=== PATIENT | female | born 1980 | race Caucasian/White ===

== ENCOUNTER 2019-07-17 11:45 | Emergency (ER) | payer SELFPAY ==
--- NOTE | 2019-07-17 12:12 | EDM.PDOC ---
ED HPI GENERAL MEDICAL PROBLEM - General Chief Complaint: ENT Problem Stated Complaint: RIGHT EYE WATERY,NOSE LEAKING Time Seen by Provider: 07/17/19 11:50 Source of Information: Reports: Patient, Old Records, RN Notes Reviewed History Limitations: Reports: No Limitations - History of Present Illness INITIAL COMMENTS - FREE TEXT/NARRATIVE: Patient is a 38-year-old female who presents to the ED for evaluation of sinus issues. The patient notes that she was most recently evaluated in this ER in May for some of the same symptoms, she was found to have an outer ear infection, and sinusitis at that time. She was put on doxycycline 100 mg twice a day, some antibiotic eardrops, a course of prednisone for management. Patient states that she did feel as if she was getting a little bit better, and had relief her week after the medications but everything has gone downhill since then again. She did follow up with ENT in [place], however her mother became ill and she missed her appointment and had to reschedule, her ENT appointment is in August now. The patient complains that over the last 3 days her symptoms have been worsening, she feels ear fullness and popping, she notes that her nose is constantly running and her right eye is now irritated and watering. She thinks that she may have scratched her eye, regarding the eye watering. The patient does not note she's had any fevers at home, but states she does have hot flashes. The patient does take loratadine, Xyzal, Flonase, and another nasal spray, and has been also taking Tylenol Cold and flu for management of her symptoms and not getting much relief. The patient complains of right-sided facial pain and fullness as well. Right Eye Pain Score (Numeric/FACES): 5 - Related Data Allergies Allergy/AdvReac Type Severity Reaction Status Date / Time Penicillins Allergy Swelling Verified 07/17/19 11:53 shellfish derived Allergy Cannot Verified 07/17/19 11:53 Remember Home Meds: Home Meds Amoxicillin/Clavulanate K [Augmentin 875-125 MG] 1 tab PO BID #14 tablet [Rx] Fluticasone Propionate [Flonase Allergy Relief] 1 spray NASBOTH Q6HR 07/17/19 [ History] Levocetirizine Dihydrochloride [Xyzal] 5 mg PO BEDTIME 07/17/19 [History] Loratadine 10 mg PO DAILY 07/17/19 [History] Montelukast [Singulair] 10 mg PO DAILY #30 tab 07/17/19 [Rx] Olopatadine HCl [Patanase] 1 spray NASBOTH BID 07/17/19 [History] Phenylephrine/Dm/Acetaminop/Gg [Tylenol Cold-Flu Severe Caplet] 1 tab PO Q6HR [History] Past Medical History HEENT History: Reports: Allergic Rhinitis, Otitis Media, Sinusitis Respiratory History: Reports: Asthma [employer]AD History: Reports: - Infectious Disease History Infectious Disease History: Reports: Chicken Pox - Past Surgical History HEENT Surgical History: Reports: Oral Surgery Female Surgical History: Reports: D&C, Tubal Ligation Musculoskeletal Surgical History: Reports: Other (See Below) Other Musculoskeletal Surgeries/Procedures:: L ankle surgery Social & Family History - Family History Family Medical History: Noncontributory - Tobacco Use Smoking Status *Q: Former Smoker Used Tobacco, but Quit: Yes Month/Year Tobacco Last Used: 2010 - Caffeine Use Caffeine Use: Reports: Coffee - Recreational Drug Use Recreational Drug Use: No - Living Situation & Occupation Living situation: Reports: Occupation: Unemployed ED ROS ENT - Review of Systems Review Of Systems: See Below Constitutional: Reports: Fever (subjective) HEENT: Reports: Ear Pain (inner ear pain/fullness), Eye Pain (R eye irritation) , Rhinitis, Sinus Problem. Denies: Ear Discharge Respiratory: Denies: Shortness of Breath, Cough Cardiovascular: Denies: Chest Pain Endocrine: Reports: No Symptoms GI/Abdominal: Reports: No Symptoms : Reports: No Symptoms Musculoskeletal: Reports: No Symptoms Skin: Reports: No Symptoms Neurological: Reports: No Symptoms Psychiatric: Reports: No Symptoms Hematologic/Lymphatic: Reports: No Symptoms Immunologic: Reports: No Symptoms ED EXAM, ENT - Physical Exam Exam: See Below Exam Limited By: No Limitations General Appearance: Alert, WD/WN, No Apparent Distress Eye Exam: Right Eye: Conjunctival Injection, Periorbital Changes (bilateral eyelid inflammation), Left Eye: EOMI, Normal Inspection, PERRL Ears: Normal External Exam, Normal Canal, Hearing Grossly Normal, Normal TMs Nose: Normal Inspection, Injected Turbinates (bilaterally, there is white drainage noted to turbinates) Mouth/Throat: Normal Inspection, Normal Gums, Normal Lips, Normal Oropharynx, Normal Teeth Head: Atraumatic, Normocephalic, Facial Tenderness (over bilateral maxillary sinuses) Neck: Normal Inspection, Supple, Non-Tender, Full Range of Motion Respiratory/Chest: No Respiratory Distress, Lungs Clear, Normal Breath Sounds, No Accessory Muscle Use, Chest Non-Tender Cardiovascular: Normal Peripheral Pulses, Regular Rate, Rhythm, No Murmur Extremities: Normal Inspection, Normal Capillary Refill Neurological: Alert, Oriented, Normal Cognition, No Motor/Sensory Deficits Psychiatric: Normal Affect, Normal Mood Skin: Warm, Dry, Intact, Normal Color, No Rash Course - Vital Signs Last Recorded V/S: Last Vital Signs Temp 97.1 F 07/17/19 11:50 Pulse 84 07/17/19 11:50 Resp 18 07/17/19 11:50 BP 124/86 07/17/19 11:50 Pulse Ox 98 07/17/19 11:50 - Orders/Labs/Meds Meds: Medications Discontinued Medications Generic Name Dose Route Start Last Admin Trade Name Erick PRN Reason Stop Dose Admin Fluorescein Sodium 1 mg 07/17/19 12:34 07/17/19 12:41 Ful-Minoo EYERT 07/17/19 12:35 1 mg ONETIME ONE Administration - Re-Assessments/Exams Free Text/Narrative Re-Assessment/Exam: 07/17/19 12:42 Patient presents to the ED for the evaluation of sinus issues. I do believe she has an acute sinus infection at this time, she does have allergic rhinitis per her history, but it is apparent that today she has a bacterial infection exacerbating these are depressive symptoms. Patient states that she does have an allergy to penicillin, but she thought that she took amoxicillin okay, she is going to check with her mother to make sure. Due to the patient's right- sided eye redness and irritation, I will instill some flurries in and check to see if there is any sort of corneal abrasion due to her rubbing her eyes. Otherwise the patient will be discharged home with a course of antibiotics, preferably Augmentin if she can tolerate it and recommendations to keep the appointment with ENT in August, I will have her call them to see if she can be put on a wait list to be evaluated sooner. I will also trial montelukast with the patient, she'll be given one month's supply, and recommended to follow up with her primary care provider or ENT for a refill of this prescription. 07/17/19 13:06 Patient's eye exam doesn't demonstrate any sign of any corneal abrasion. Departure - Departure Time of Disposition: 13:02 Disposition: Home, Self-Care 01 Condition: Fair Clinical Impression: Acute sinus infection Qualifiers: Sinusitis location: maxillary Recurrence: recurrent Qualified Code(s): J01.01 - Acute recurrent maxillary sinusitis - Discharge Information *PRESCRIPTION DRUG MONITORING PROGRAM REVIEWED*: No *COPY OF PRESCRIPTION DRUG MONITORING REPORT IN PATIENT [place]: No Prescriptions: Amoxicillin/Clavulanate K [Augmentin 875-125 MG] 1 tab PO BID #14 tablet Montelukast [Singulair] 10 mg PO DAILY #30 tab Instructions: Sinusitis, Adult, [id number] Forms: ED Department Discharge Additional Instructions: You were evaluated in the ED today for your sinus issues. You were found to have an acute sinus infection at this time, management of this is antibiotic treatment, you were given a prescription for Augmentin, please take one tab 2 times daily until gone. 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 You were also given a prescription for Singulair, please take one tab daily for relief of allergy type symptoms. This is a trial medication if he should find relief after the month is done, recommend that you request a refill from your primary care provider. Recommend calling your ENT doctor and request and be put on a wait list to see if you can get evaluated a little bit sooner rather than later. You may take 600 mg ibuprofen every 6 hours PRN or 1-2 tabs Aleve every 12 hours PRN for pain relief. Please return to the ED if your symptoms should change or worsen.
[2019-07-17] MEDS ORDERED: Fluorescein 1 MG Ophth Strip EYERT ONE (12:34)
== END 2019-07-17 13:20 | disposition home or self-care (01) ==
LOC: JD.ED 11:45
DX: J01.01 Acute recurrent maxillary sinusitis (principal); J45.909 Unspecified asthma, uncomplicated; Z88.0 Allergy status to penicillin; Z91.013 Allergy to seafood; Z79.51 Long term (current) use of inhaled steroids; Z87.891 Personal history of nicotine dependence
CPT/HCPCS: 99283

== ENCOUNTER 2022-11-01 12:06 | Emergency (ER) | payer SELFPAY ==
[2022-11-01] MEDS ORDERED: cefTRIAXone 1 GM Vial IM ONE (12:32)
[2022-11-01] MEDS ORDERED: Dexamethasone 10 MG/ML SDV IM ONE (12:35)
[2022-11-01] MEDS ORDERED: Albuterol/Ipratropium 3.0-0.5 MG/3 ML Neb Soln NEB ONE (12:35)
[2022-11-01] MEDS ORDERED: LORazepam 1 MG Tab PO ONE (13:11)
[2022-11-01] MEDS ORDERED: Lidocaine 1% 10 ML MDV INJECT ONE (13:39)
[2022-11-01] MEDS ORDERED: Lidocaine 1% 10 ML MDV ONE (13:39)
== END 2022-11-01 13:27 | disposition home or self-care (01) ==
LOC: JD.ED 12:06
DX: J01.41 Acute recurrent pansinusitis (principal); J01.91 Acute recurrent sinusitis, unspecified; J45.909 Unspecified asthma, uncomplicated; Z88.0 Allergy status to penicillin; Z91.013 Allergy to seafood
CPT/HCPCS: 94640; 96372; 99284; J0696; J1100; J3490; J7620-GY

== ENCOUNTER 2023-08-06 11:34 | Emergency (ER) | payer SELFPAY ==
[2023-08-06] MEDS ORDERED: diphenhydrAMINE 50 MG/ML SDV IVPUSH ONE (15:06)
[2023-08-06] MEDS ORDERED: Metoclopramide 10 MG/2 ML SDV IVPUSH ONE (15:06)
[2023-08-06] MEDS ORDERED: Ketorolac 30 MG/ML SDV IVPUSH ONE (15:06)
[2023-08-06] MEDS ORDERED: Sodium Chloride 0.9% 1,000 ML IV SCH (15:15)
[2023-08-06 16:56] LABS: CORONAVIRUS COVID-19 NAA NEGATIVE (NEGATIVE); INFLUENZA A NAA NEGATIVE (NEGATIVE); RESPIRATORY SYNCYTIAL VIR NAA NEGATIVE (NEGATIVE)
== END 2023-08-06 17:18 | disposition home or self-care (01) ==
LOC: JD.ED 11:34
DX: G44.209 Tension-type headache, unspecified, not intractable (principal); J45.909 Unspecified asthma, uncomplicated; Z79.899 Other long term (current) drug therapy; Z88.0 Allergy status to penicillin; Z91.013 Allergy to seafood; Z20.822 Contact with and (suspected) exposure to COVID-19
CPT/HCPCS: 0241U; 82947; 96361; 96374; 96375; 99284; J1200; J1885; J2765; J7030

== ENCOUNTER 2024-07-12 14:33 | Emergency (ER) | payer SELFPAY ==
[2024-07-12] MEDS: Ketorolac 60 MG/2 ML SDV IM ONE (16:15)
== END 2024-07-12 16:25 | disposition home or self-care (01) ==
LOC: JD.ED 14:33
DX: J01.91 Acute recurrent sinusitis, unspecified (principal); J45.909 Unspecified asthma, uncomplicated; Z79.899 Other long term (current) drug therapy; Z88.0 Allergy status to penicillin; Z91.013 Allergy to seafood
CPT/HCPCS: 96372; 99283; J1885